=== PATIENT | female | born 2005 | race Caucasian/White ===

== ENCOUNTER 2023-06-15 17:01 | Emergency (ER) | payer BC ==
[~2023-06-15] VITALS: Ht 167 cm; Wt 113.3 kg
[2023-06-15] MEDS ORDERED: morphine INJ 10 MG/ML 1ML (SYR OR VIAL) IVP STA (17:18)
[2023-06-15] MEDS ORDERED: NS IV 1000 ML 1,000 ML IV STA (17:18)
--- NOTE | 2023-06-15 17:18 | ED Abdominal Pain ---
General Chief Complaint: Abdominal/GI Problems Stated Complaint: ABD PAIN Source of Information: Patient Exam Limitations: No Limitations History of Present Illness Date Seen by Provider: Jun 15, 2023 Time Seen by Provider: 17:04 Initial Comments 17-year-old female with no pertinent past medical history coming in due to right upper quadrant pain. She has had the pain for several weeks, has had nonbloody nonbilious vomiting for the past several days, and fever as recent as yesterday. She has not had any antipyretics or any medications. Her doctor believes she could have gallbladder issues, however she has not been able to have any studies done in the meantime. Last vomited just prior to arrival. The pain is worse with eating. Allergies and Home Medications Allergies Coded Allergies: No Known Drug Allergies (Unverified , 06/15/23) Patient Home Medication List Home Medication List Reviewed: Yes Ciprofloxacin HCl (Ciprofloxacin HCl) 500 Mg Tablet, 500 MG PO BID Prescribed by: CHUYITA KELLEY on 06/15/231750 Hydrocodone/Acetaminophen (Hydrocodone-Acetamin 5-325 mg) 5 Mg-325 Mg Tablet, 1 TAB PO Q6H PRN for PAIN-MODERATE (5-7) Prescribed by: CHUYITA KELLEY on 06/15/231750 Metronidazole (Metronidazole) 500 Mg Tablet, 500 MG PO TID Prescribed by: CHUYITA KELLEY on 06/15/231750 Ondansetron (Ondansetron Odt) 4 Mg Tab.rapdis, 4 MG SL Q6H PRN for NAUSEA/VOMITING Prescribed by: CHUYITA KELLEY on 06/15/231750 Review of Systems Review of Systems Constitutional: fever EENTM: No Symptoms Reported Respiratory: No Symptoms Reported Cardiovascular: No Symptoms Reported Gastrointestinal: See HPI Genitourinary: No Symptoms Reported Musculoskeletal: no symptoms reported Skin: no symptoms reported Psychiatric/Neurological: No Symptoms Reported Endocrine: No Symptoms Reported Hematologic/Lymphatic: No Symptoms Reported All Other Systems Reviewed Negative Unless Noted: Yes Past Nfvcxkv-Kjykhl-Qcghao Hx Patient Social History Tobacco Use?: No Smokeless Tobacco Frequency: Never a User Use of E-Cig and/or Vaping Ab: Never a User Substance use?: No Alcohol Use?: No Pt feels they are or have been: No Past Medical History Surgeries: No Physical Exam Vital Signs Vital Signs - First Documented 06/15/23 17:10 Temp 36.8 Pulse 85 Resp 85 B/P (MAP) 115/83 (94) Pulse Ox 98 Capillary Refill : Height/Weight/BMI Height: '" Weight: lbs. oz. kg; BMI Method: General Appearance: WD/WN, mild distress HEENT: PERRL/EOMI, normal ENT inspection, pharynx normal Neck: non-tender, full range of motion, supple, normal inspection Respiratory: chest non-tender, lungs clear, normal breath sounds, no respirato ry distress, no accessory muscle use Cardiovascular: regular rate, rhythm, no edema, no murmur Gastrointestinal: normal bowel sounds; No distended, No guarding, No rebound; tenderness, other (Positive Woods sign) Back: normal inspection, no CVA tenderness Neurologic/Psychiatric: no motor/sensory deficits, alert, normal mood/affect Skin: normal color, warm/dry Progress/Results/Core Measures Results/Orders Lab Results Laboratory Tests Test 06/15/23 17:10 Range/Units White Blood Count 11.5 H 4.3-11.0 10^3/uL Red Blood Count 4.71 3.80-5.11 10^6/uL Hemoglobin 13.8 11.5-16.0 g/dL Hematocrit 41 35-52 % Mean Corpuscular Volume 87 80-99 fL Mean Corpuscular Hemoglobin 29 25-34 pg Mean Corpuscular Hemoglobin Concent 34 32-36 g/dL Red Cell Distribution Width 12.3 10.0-14.5 % Platelet Count 396 130-400 10^3/uL Mean Platelet Volume 10.8 9.0-12.2 fL Immature Granulocyte % (Auto) 0 % Neutrophils (%) (Auto) 69 42-75 % Lymphocytes (%) (Auto) 23 12-44 % Monocytes (%) (Auto) 7 0-12 % Eosinophils (%) (Auto) 1 0-10 % Basophils (%) (Auto) 0 0-10 % Neutrophils # (Auto) 7.9 H 1.8-7.8 10^3/uL Lymphocytes # (Auto) 2.6 1.0-4.0 10^3/uL Monocytes # (Auto) 0.8 0.0-1.0 10^3/uL Eosinophils # (Auto) 0.1 0.0-0.3 10^3/uL Basophils # (Auto) 0.0 0.0-0.1 10^3/uL Immature Granulocyte # (Auto) 0.0 0.0-0.1 10^3/uL Prothrombin Time 12.4 12.2-14.7 SEC INR Comment 0.9 0.8-1.4 Activated Partial Thromboplast Time 28 24-35 SEC Sodium Level 138 135-145 MMOL/L Potassium Level 3.8 3.6-5.0 MMOL/L Chloride Level 106 98-107 MMOL/L Carbon Dioxide Level 23 21-32 MMOL/L Anion Gap 9 5-14 MMOL/L Blood Urea Nitrogen 9 7-18 MG/DL Creatinine 0.77 0.60-1.30 MG/DL Estimat Glomerular Filtration Rate 114 BUN/Creatinine Ratio 12 Glucose Level 95 70-105 MG/DL Calcium Level 9.6 8.5-10.1 MG/DL Corrected Calcium 9.3 8.5-10.1 MG/DL Magnesium Level 1.9 1.6-2.4 MG/DL Total Bilirubin 0.3 0.1-1.0 MG/DL Aspartate Amino Transf (AST/SGOT) 16 5-34 U/L Alanine Aminotransferase (ALT/SGPT) 22 0-55 U/L Alkaline Phosphatase 72 40-136 U/L Total Protein 8.4 H 6.4-8.2 GM/DL Albumin 4.4 3.2-4.5 GM/DL Lipase 10 8-78 U/L My Orders Orders - CHUYITA KELLEY MD Urine Bedside (06/15/23 17:09) Cbc And Automated Diff (06/15/23 17:16) Comprehensive Metabolic Panel (06/15/23 17:16) Lipase (06/15/23 17:16) Magnesium (06/15/23 17:16) Protime With Inr (06/15/23 17:16) Partial Thromboplastin Time (06/15/23 17:16) Morphine Injection (Morphine Injection (06/15/23 17:18) Ondansetron Injection (Ondansetron Inj (06/15/23 17:30) Ns Iv 1000 Ml (Ns Iv 1000 Ml) (06/15/23 17:18) Rx-Hydrocodone/Apap 5-325 Mg (Rx-Vicodin (06/15/23 18:00) Rx-Ondansetron Po (Rx-Zofran Po) (06/15/23 17:52) Ciprofloxacin Tablet (Ciprofloxacin Tabl (06/15/23 17:53) Metronidazole Tablet (Metronidazole Tabl (06/15/23 17:53) Medications Given in ED Current Medications Medications Dose Ordered Sig/Thang Route Start Time Stop Time Status Last Admin Dose Admin Ondansetron HCl 4 mg ONCE ONCE IVP 06/15/23 17:30 06/15/23 17:31 DC 06/15/23 17:32 4 MG Vital Signs/I&O 06/15/23 17:10 Temp 36.8 Pulse 85 Resp 85 B/P (MAP) 115/83 (94) Pulse Ox 98 Progress Progress Note : Progress Note 17-year-old female with above history coming in due to right upper quadrant pain. ABCs were intact and vitals were stable on presentation. Physical exam with positive Woods sign, she was actively retching when I walked in the room. An IV was placed and she was given a bolus of IV fluids, Zofran for nausea, morphine for pain control. I did a [id number] ultrasound and she does have gallbladder wall thickening around 0.35 cm, no pericholecystic fluid, and there is shadowing at the neck of the gallbladder concerning for gallstone. Unfortunately, we do not have formal ultrasound capabilities at this time. Basic labs were significant for a mild leukocytosis, normal kidney function, normal LFTs. Clinically this appears to be symptomatic cholelithiasis. I contacted Dr. JHAVERI, he recommends ordering an ultrasound for tomorrow as an outpatient, starting her on pain control, nausea meds, and antibiotics, and he likely will take the gallbladder out on Tuesday if needed. I discussed all this with the patient and she is agreeable. She was then discharged home in stable condition with strict return precautions. Departure Impression Primary Impression: Symptomatic cholelithiasis Disposition: HOME, SELF-CARE Condition: Stable Departure-Patient Inst. Decision time for Depature: 18:00 Referrals: ORLANDO JHAVERI MD NO,LOCAL PHYSICIAN (PCP) Primary Care Physician Patient Instructions: Gallstones Add. Discharge Instructions: We are not seeing any evidence of gallbladder infection at this time, but you do have gallstones that likely are symptomatic. You will need to come back for an ultrasound tomorrow morning as an outpatient. Call Dr. JHAVERI's office to schedule an appointment, his number is in this paperwork. You will be on antibiotics for the next week as well, and pain medicines and nausea medicines were sent to your pharmacy. Scripts Hydrocodone/Acetaminophen (Hydrocodone-Acetamin 5-325 mg) 5 Mg-325 Mg Tablet 1 TAB PO Q6H PRN for PAIN-MODERATE (5-7) for 3 Days, #12 TAB Prov: CHUYITA KELLEY MD 06/15/23 Ondansetron (Ondansetron Odt) 4 Mg Tab.rapdis 4 MG SL Q6H PRN for NAUSEA/VOMITING for 5 Days, #20 TAB Prov: CHUYITA KELLEY MD 06/15/23 Metronidazole (Metronidazole) 500 Mg Tablet 500 MG PO TID for 7 Days, #21 TAB Prov: CHUYITA KELLEY MD 06/15/23 Ciprofloxacin HCl (Ciprofloxacin HCl) 500 Mg Tablet 500 MG PO BID for 7 Days, #14 TAB Prov: CHUYITA KELLEY MD 06/15/23 Work/School Note: School/Childcare Release Date Seen in the Emergency Department: Jun 15, 2023 Time Dismissed from Emergency Department: 17:52 Return to School: Jun 17, 2023 Restrictions: Return-No Fever (24hrs), Return-No Vomiting(24hrs) CHUYITA KELLEY MD Jun 15, 2023 17:18
[2023-06-15 17:23] LABS: BASOPHILS % (AUTO) 0 % (0-10); EOSINOPHILS # (AUTO) 0.1 10^3/uL (0.0-0.3); EOSINOPHILS % (AUTO) 1 % (0-10); HEMATOCRIT 41 % (35-52); HEMOGLOBIN 13.8 g/dL (11.5-16.0); LYMPHOCYTES # (AUTO) 2.6 10^3/uL (1.0-4.0); LYMPHOCYTES % (AUTO) 23 % (12-44); MEAN CORPUSCULAR HEMOGLOBIN 29 pg (25-34); MEAN CORPUSCULAR HGB CONC 34 g/dL (32-36); MEAN CORPUSCULAR VOLUME 87 fL (80-99); MEAN PLATELET VOLUME 10.8 fL (9.0-12.2); MONOCYTES # (AUTO) 0.8 10^3/uL (0.0-1.0); MONOCYTES % (AUTO) 7 % (0-12); NEUTROPHILS # (AUTO) 7.9 10^3/uL (1.8-7.8); NEUTROPHILS % (AUTO) 69 % (42-75); PLATELET COUNT 396 10^3/uL (130-400); WHITE BLOOD COUNT 11.5 10^3/uL (4.3-11.0)
[2023-06-15 17:29] LABS: ALBUMIN 4.4 GM/DL (3.2-4.5); INR 0.9 (0.8-1.4); PROTHROMBIN TIME PATIENT 12.4 SEC (12.2-14.7)
[2023-06-15 17:30] LABS: POTASSIUM 3.8 MMOL/L (3.6-5.0)
[2023-06-15] MEDS ORDERED: ONDANSETRON INJECTION 4 MG/2 ML (SDV) IVP ONE (17:30)
[2023-06-15 17:31] LABS: CALCIUM 9.6 MG/DL (8.5-10.1)
[2023-06-15 17:32] LABS: TOTAL PROTEIN 8.4 GM/DL (6.4-8.2)
[2023-06-15 17:34] LABS: BILIRUBIN,TOTAL 0.3 MG/DL (0.1-1.0)
[2023-06-15 17:36] LABS: CREATININE SERUM 0.77 MG/DL (0.60-1.30)
[2023-06-15 17:38] LABS: MAGNESIUM 1.9 MG/DL (1.6-2.4)
[2023-06-15] MEDS ORDERED: METR-145 PO (17:51)
[2023-06-15] MEDS ORDERED: ACHD5005 PO (17:51)
[2023-06-15] MEDS ORDERED: ONDA4TAB11 SL (17:51)
[2023-06-15] MEDS ORDERED: CIPR500T5 PO (17:51)
[2023-06-15] MEDS ORDERED: RX-ONDANSETRON 4 MG ODT (ZOFRAN) PPK #4 PO STA (17:52)
[2023-06-15] MEDS ORDERED: metroNIDAZOLE 500 MG TABLET PO STA (17:53)
[2023-06-15] MEDS ORDERED: CIPROFLOXACIN 500 MG TABLET PO STA (17:53)
[2023-06-15 18:12] VITALS: BP 134/95
== END 2023-06-15 18:11 | disposition home or self-care (01) ==
LOC: ER 17:03
DX: K80.20 Calculus of gallbladder without cholecystitis without obstruction (principal); D72.829 Elevated white blood cell count, unspecified
CPT/HCPCS: 36415; 80053; 83690; 83735; 85025; 85610; 85730; 96374; 96375

== ENCOUNTER → 2023-06-16 | Outpatient (CLI) | payer BC ==
[~2023-06-16] MED LIST: ACHD5005 PO; CIPR500T5 PO; METR-145 PO; ONDA4TAB11 SL
--- NOTE | 2023-06-16 09:33 | Diagnostic Imaging Report ---
PROCEDURE: US Gallbladder. TECHNIQUE: Multiple real-time grayscale images were obtained over the right upper quadrant in various projections. INDICATION: Symptomatic cholelithiasis. COMPARISON: None available. FINDINGS: The liver is normal in size (17 cm) and echogenicity. There is no focal hepatic mass. The main portal vein is patent with antegrade flow. The gallbladder is distended without gallstones, wall thickening, or pericholecystic fluid. The common bile duct measures up to 0.3 cm in diameter. No intrahepatic biliary dilation. The visualized portions of the pancreas are normal. Portions of the head and tail are obscured by overlying bowel gas. The right kidney is normal in size. No hydronephrosis, shadowing calculi, or suspicious mass lesion. IMPRESSION: 1. No cholelithiasis or features of acute cholecystitis. 2. No biliary obstruction. 3. Normal sonographic appearance of the liver. Dictated by: Dictated on workstation # [id number]
== END ==
LOC: RAD 08:33
PROVIDERS: ATTEND Emergency Medicine
DX: K80.20 Calculus of gallbladder without cholecystitis without obstruction (principal)
CPT/HCPCS: 76705

== ENCOUNTER → 2023-06-27 | Outpatient (CLI) | payer BC ==
[~2023-06-27] MED LIST changes: +CATHETER FLUSH 10 ML SYR IVP PRN
--- NOTE | 2023-06-27 11:36 | Diagnostic Imaging Report ---
INDICATION: Right upper quadrant pain. Patient was administered 5.4 mCi technetium 99m Choletec intravenously and imaging over the abdomen was performed. At 60 minutes patient ingested 8 ounces of Ensure and the gallbladder ejection fraction was calculated. There is homogeneous uptake of activity by the liver with prompt excretion of activity into the gallbladder and common duct. There is normal passage of activity into the small bowel. Gallbladder ejection fraction is abnormally low at 26%. Normal values are 35% or greater. IMPRESSION: 1. Patent cystic duct and common bile duct. 2. Low gallbladder ejection fraction of 26%. Dictated by: Dictated on workstation # [id number]
== END ==
LOC: CARD 08:46
PROVIDERS: ATTEND Surgery
DX: K81.9 Cholecystitis, unspecified (principal); K83.5 Biliary cyst
CPT/HCPCS: 78227

== ENCOUNTER → 2023-07-04 | Outpatient (CLI) | payer BC ==
[~2023-07-04] VITALS: Ht 167.7 cm; Wt 109.2 kg
[~2023-07-04] MED LIST changes: -CATHETER FLUSH 10 ML SYR IVP PRN; +HYDR-3817 PO; +LEVO1TAB9 PO
== END | disposition home or self-care (01) ==
LOC: PREOP 05:34
PROVIDERS: ATTEND Surgery
DX: Z01.818 Encounter for other preprocedural examination (principal)

== ENCOUNTER 2023-07-07 12:14 | Day surgery (SDC) | payer BC ==
[~2023-07-07] VITALS: Ht 167.7 cm; Wt 109.2 kg
[~2023-07-07 12:14] MED LIST changes: -HYDR-3817 PO
[2023-07-07] MEDS ORDERED: NS (IVPB) 50 ML 50 ML ONE (12:28)
[2023-07-07] MEDS ORDERED: ceFAZolin INJECTION 2,000 MG ONE (12:28)
[2023-07-07] MEDS ORDERED: LIDOCAINE 2% w/EPI 1:100,000 20 ML VIAL ONE (13:10)
[2023-07-07] MEDS: LACTATED RINGERS 1,000 ML 1,000 ML IV PRN ×2 (13:12→15:48)
--- NOTE | 2023-07-07 13:14 | Progress Note-Pre Operative ---
Pre-Operative Progress Note Date of Available H&P: Jul 07, 2023 Date H&P Reviewed: Jul 07, 2023 Time H&P Reviewed: 13:00 History & Physical: No changes noted Pre-Operative Diagnosis: sx biliary dyskinesia ORLANDO JHAVERI MD Jul 07, 2023 13:14
[2023-07-07] MEDS ORDERED: ONDANSETRON INJECTION 4 MG/2 ML (SDV) IVP PRN ×2 (13:15→15:45)
[2023-07-07] MEDS ORDERED: oxyCODONE/ACETAMINOPHEN 5/325MG TABLET PO PRN (13:15)
[2023-07-07] MEDS ORDERED: morphine INJ 10 MG/ML 1ML (SYR OR VIAL) IVP PRN ×2 (13:15)
[2023-07-07] MEDS ORDERED: ceFAZolin INJECTION 2,000 MG in NS (IVPB) 50 ML 50 ML IV ONE (13:15)
[2023-07-07] MEDS ORDERED: ACETAMINOPHEN 325 MG TABLET PO PRN (13:15)
[2023-07-07] MEDS ORDERED: HYDR-3817 PO (13:16)
--- NOTE | 2023-07-07 13:16 | Discharge Inst-Surgical ---
D/C Lap Instructions-EMILIO New, Converted, or Re-Newed RX: RX on Chart Follow Up Appt in 2 weeks Activity as tolerated No driving for 24 hours No driving while on pain medications Incentive Spirometry use every 2 hours while awake Regular Diet Symptoms to Report: Fever over 101 degree F, Nausea/Vomiting Infection Signs and Symptoms to report: Increased redness, Foul odor of wound, Increased drainage Bathing instructions: May shower Operative Area Clean/Dry; Keep incision clean/dry If any problems/questions: Contact your physician or go to Emergency Room ORLANDO JHAVERI MD Jul 07, 2023 13:16
[2023-07-07] MEDS ORDERED: fentaNYL INJECTION 100 MCG/2 ML VIAL ONE ×2 (13:59→15:50)
[2023-07-07] MEDS ORDERED: LIDOCAINE PF 2% 5 ML VIAL ONE (13:59)
[2023-07-07] MEDS ORDERED: proPOfol INJECTION 200 MG/20 ML VIAL IV ONE (13:59)
[2023-07-07] MEDS ORDERED: MIDAZOLAM INJ 2 MG/2 ML VIAL ONE (13:59)
[2023-07-07] MEDS ORDERED: ONDANSETRON INJECTION 4 MG/2 ML (SDV) ONE (13:59)
[2023-07-07] MEDS ORDERED: morphine INJ 10 MG/ML 1ML (SYR OR VIAL) ONE ×2 (15:21→16:07)
[2023-07-07] MEDS ORDERED: SEVOFLURANE (ULTANE) 15 ML INHAL SOLN ONE (15:27)
[2023-07-07] MEDS ORDERED: GLYCOPYRROLATE INJ 0.2 MG/ML 2 ML VIAL ONE (15:27)
[2023-07-07] MEDS ORDERED: NEOSTIGMINE 1 MG/1ML 10 ML VIAL ONE (15:27)
[2023-07-07] MEDS ORDERED: ROCURONIUM 50 MG/5 ML VIAL IV ONE (15:29)
[2023-07-07 15:42] VITALS: BP 143/92
[2023-07-07] MEDS ORDERED: MEPERIDINE INJ 50 MG/ML VIAL IVP ONE (15:45)
[2023-07-07] MEDS ORDERED: fentaNYL INJECTION 100 MCG/2 ML VIAL IVP ONE (15:45)
[2023-07-07] MEDS ORDERED: morphine INJ 10 MG/ML 1ML (SYR OR VIAL) IVP ONE (15:45)
--- NOTE | 2023-07-07 15:45 | Anesthesia-General Post-Op ---
General Patient Condition Mental Status/LOC: Same as Preop Cardiovascular: Satisfactory Nausea/Vomiting: Absent Respiratory: Satisfactory Pain: Controlled Complications: Absent Post Op Complications Complications None Follow Up Care/Instructions Patient Instructions None needed. Anesthesia/Patient Condition Patient Condition Patient is doing well, no complaints, stable vital signs, no apparent adverse anesthesia problems. No complications reported per nursing. LONNIE SANTANA CRNA Jul 07, 2023 15:45
--- NOTE | 2023-07-07 15:46 | Progress Note-Post Operative ---
Post-Operative Progess Note Surgeon (s)/Packaging Designer (s) Surgeon ORLANDO JHAVERI MD Packaging Designer: berenice arora SUPERVISORY TRAINING SPECIALIST Pre-Operative Diagnosis sx biliary dyskinesia Post-Operative Diagnosis same Procedure & Operative Findings Date of Procedure 07/07/23 Procedure Performed/Findings laparoscopic cholecystectomy Anesthesia Type get Estimated Blood Loss Estimated blood loss (mL): minimal Specimens/Packing Specimens Removed gallbladder ORLANDO JHAVERI MD Jul 07, 2023 15:46
[2023-07-07 15:50] VITALS: BP 108/67
[2023-07-07 16:00] VITALS: BP 153/90
[2023-07-07 16:10] VITALS: BP 154/90
[2023-07-07 16:20] VITALS: BP 144/89
[2023-07-07 16:30] VITALS: BP 144/89
[2023-07-07] MEDS ORDERED: oxyCODONE/ACETAMINOPHEN 5/325MG TABLET ONE (17:12)
--- NOTE | 2023-07-07 23:36 | OPERATIVE REPORT ---
DATE OF SERVICE: 07/07/2023 PREOPERATIVE DIAGNOSIS: Symptomatic biliary dyskinesia. POSTOPERATIVE DIAGNOSIS: Symptomatic biliary dyskinesia. PROCEDURE: Laparoscopic cholecystectomy. SURGEON: Orlando Jhaveri MD WAREHOUSE COORDINATOR: Robbie Jovel APRN ANESTHESIA: General endotracheal. ESTIMATED BLOOD LOSS: Minimal. FINDINGS: Distended gallbladder, no gallstones. DISPOSITION: The patient tolerated the procedure well. INDICATIONS: The patient is a 17-year-old female with a four-month history of abdominal bloating, epigastric and right upper abdominal quadrant crampy pain as well as nausea usually following meals. She states that this was initially mild however, over time this became more frequent as well as more severe in nature. She states that she has had multiple relatives, who also had gallbladders removed. She underwent an ultrasound, which did not show any gallstones. This was followed by a HIDA scan, which did show an low ejection fraction. She did have reproduction of symptoms consistent with biliary dyskinesia. DESCRIPTION OF PROCEDURE: The patient was brought to the operating room, laid supine on the table. After adequate IV pain and sedative medications and general endotracheal intubation, the abdomen was prepped and draped in standard surgical fashion. A 2% lidocaine with epinephrine was used to anesthetize the overlying skin in the left upper abdominal quadrant and a transverse skin incision made using a #15 blade. An 0 silk suture was applied to the medial aspect of the incision for retraction and a Veress needle inserted with a low opening pressure of 0 mmHg and the abdomen was then insufflated to 15 mmHg pressure. The Veress needle removed and a 5 mm trocar placed followed by a 5 mm 45-degree angle laparoscope visualized the peritoneal cavity. A 4-quadrant abdominal exploration was performed. There was a distended gallbladder, no gallbladder wall thickening. Under direct visualization, we then proceeded to place a supraumbilical 10 mm port after the skin and peritoneal lining were anesthetized using 2% lidocaine with epinephrine and a transverse skin incision made using a #15 blade. In a similar manner, a right upper abdominal quadrant 5 mm port was placed. The patient was then placed in reverse Trendelenburg position as well as plane right side up, left side down. The fundus of the gallbladder was then retracted anteriorly and superiorly. The hepatoduodenal ligament was then dissected using blunt dissection as well as electrocautery using the hook instrument as well as a [place] dissector. The entire critical view of safety was identified including the triangle of Calot as well as the cystic duct and artery as the only 2 structures going into the gallbladder as well as the cystic plate behind the proximal gallbladder. A timeout was then taken and the cystic duct and artery were then clipped proximally and distally and cut with EndoShears. The gallbladder was then dissected off of the liver bed using cautery on hook instrument with visualization of good hemostasis as well as no leaking ducts of Luschka. The gallbladder was removed through the 10 mm port site using an EndoCatch bag. The 10 mm port site fascia and peritoneum were then closed under direct visualization using a Nadeem-Fermin device and 0 Vicryl suture. The abdomen was desufflated and the remaining ports removed. All skin incisions were closed using 4-0 Monocryl running subcuticular sutures. Wounds were then cleaned and covered with Dermabond. The patient tolerated the procedure well. We will start IV normal pain medication as well as a clear liquid diet. Once tolerating clears with good pain control with oral pain medication and is ambulating well, we will discharge her home where she will be instructed no heavy lifting or exertion for the next 2 weeks. Job ID: [id number] DocumentID: [id number] Dictated Date: 07/07/2023 15:52:28 Switch Foreman Date: 07/07/2023 23:35:00 Dictated By: ORLANDO JHAVERI MD
== END 2023-07-07 17:40 | disposition home or self-care (01) ==
LOC: SDC 12:14
PROVIDERS: ATTEND Surgery
DX: K81.1 Chronic cholecystitis (principal); K82.8 Other specified diseases of gallbladder; E66.9 Obesity, unspecified; R19.7 Diarrhea, unspecified; Z68.39 Body mass index [BMI] 39.0-39.9, adult
CPT/HCPCS: 84703; 87081